=== PATIENT | female | born 1940 | race Caucasian/White ===

== ENCOUNTER → 2018-05-31 14:32 | Outpatient (CLI) | payer MEDICARE, SELFPAY ==
--- NOTE | 2018-05-31 | DI.MG.S_ITS ---
BILATERAL DIGITAL SCREENING MAMMOGRAM 3D/2D WITH CAD: 05/31/2018 CLINICAL: Routine screening. Comparison is made to exams dated: 05/11/2017 mammogram, 05/05/2016 mammogram, 11/05/2015 mammogram, 05/07/2015 mammogram, and 04/30/2015 mammogram - [facility]. There are scattered fibroglandular elements in both breasts. Current study was also evaluated with a Computer Aided Detection (CAD) system. There are benign vascular calcifications in both breasts. No significant masses, calcifications, or other findings are seen in either breast. There has been no significant interval change. IMPRESSION: There is no mammographic evidence of malignancy. A 1 year screening mammogram is recommended. This exam was interpreted at Station ID: [id number]. NOTE: For mammograms, a report in lay terms will be sent to the patient. Approximately 15% of breast malignancies will not be visualized mammographically. In the management of a palpable breast mass, a negative mammogram must not discourage biopsy of a clinically suspicious lesion. Electronically Signed By: Sandeep godinez/carmina:05/31/2018 18:42:55 letter sent: Normal Exam ACR BI-RADS Category 2: Benign Finding(s) 3342F
== END ==
PROVIDERS: PCP Physician Assistant Medical; Visit Provider Physician Assistant
DX: Z12.31 Encounter for screening mammogram for malignant neoplasm of breast (principal)
CPT/HCPCS: 77063; 77067

== ENCOUNTER → 2018-08-08 09:57 | Outpatient (CLI) | payer MEDICARE, SELFPAY ==
[2018-08-08 10:39] LABS: BUN Creatinine Ratio 21.3 (6-22); Blood Urea Nitrogen 17 mg/dL (7-17); Estimated Glomerular Filt Rate > 60.0 mL/min (>60)
--- NOTE | 2018-08-08 10:50 | DI.CT.S_ITS ---
PROCEDURE: CT ABDOMEN PELVIS WO/W CON INDICATIONS: GROSS HEMATURIA TECHNIQUE: Optional 5 mm thick noncontrast images acquired from the diaphragm to the symphysis pubis. After the administration of intravenous contrast, 5 mm thick images acquired from the diaphragm to the symphysis pubis after a 10-minute delay. 2 mm thick coronal and sagittal reformats were then performed of the kidneys and ureters. For radiation dose reduction, the following was used: automated exposure control, adjustment of mA and/or kV according to patient size. COMPARISON: None. FINDINGS: Image quality: Excellent. Lung bases: Lung bases are clear. Heart size is normal. Urinary system: Both kidneys are normal in size, without hydronephrosis on pre-contrast images. No perinephric fat stranding. Faint 2-3 mm hyperdensity involving midpole of right kidney is seen, likely represent nonobstructing right renal calculi. 1 cm hyperdense exophytic structure involving anterior cortex of upper to mid pole left kidney is seen and shows no contrast-enhancement, likely represent hyperdense cyst. Simple appearing cysts are also seen in left kidney and measures up to 1.9 cm in size in the lateral cortex of mid to lower pole left kidney. No gross enhancing renal lesion is noted. There is normal bilateral renal enhancement. Renal calyces appear normal in morphology when filled with contrast. Opacified portions of both ureters demonstrate normal caliber. There is mild diffuse bladder wall thickening, no gross discrete bladder wall mass is seen. No calcified bladder stones. Other solid organs: Liver is normal in size and enhancement. Ill-defined hypodense area involving right hepatic dome is seen and measures 1.1 x 1.7 cm in size and shows heterogeneous contrast enhancement. Similar structure involving the inferior aspect of right hepatic lobe and measures 1.3 x 0.7 cm in size is also seen. Gallbladder is well-distended and shows no gross abnormality. Biliary system is non dilated. Pancreas enhances normally. Spleen is normal in size and enhancement. No adrenal nodules. Peritoneum and bowel: There is a small hiatal hernia. No abnormal gastric wall or small bowel wall thickening. Markedly fluid distended ascending colon, transverse colon and descending colon to the level of proximal to mid sigmoid colon is seen with abrupt caliber changes. Markedly narrowed sigmoid colon lumen with diffuse sigmoid colon wall thickening and rectal wall thickening is seen. Extensive sigmoid diverticulosis is seen, and no CT evidence of acute diverticulitis. No free fluid or free air. There is a tiny ventral hernia containing fat only. Nodes and vessels: No retroperitoneal or mesenteric adenopathy by size criteria. Aorta and inferior vena cava are normal in size. Abdominal wall: No ventral hernias. Pelvis: No pathologic free pelvic fluid. No inguinal hernias or adenopathy. Patient is status post hysterectomy. No definite abnormality is seen in sagittal cuff region. Bones: No suspicious bony lesions. No vertebral body compression fractures. IMPRESSION: #1. Tiny nonobstructing right renal calculi. No obstructing renal stone or hydronephrosis. Normal appearing bilateral ureters. Suggestion of 1 cm hyperdense cyst in anterior cortex of mid pole left kidney. Additional simple appearing cysts are also seen in left kidney. No definite enhancing renal lesion. #2. Mild diffuse bladder wall thickening, no discrete bladder wall mass. No calcified bladder stone. #3. Diffuse mid to distal sigmoid colon wall thickening and rectal wall thickening with markedly narrowed sigmoid colon lumen and significant distention of colon loops proximal to this area. Finding is concerning for a circumferential sigmoid colon wall mass, suggest clinical and possible endoscopic correlation. Sigmoid diverticulosis with no evidence of acute diverticulitis. No free fluid or free air. #4. Ill-defined hypodensities involving right hepatic dome as above, which may represent hepatic hemangioma. CT or MRI followup is recommended. #5. No definite abdominal or pelvic lymphadenopathy. Dictated by: David Alvarez M.D. on 08/08/2018 at 13:35 Approved by: David Alvarez M.D. on 08/08/2018 at 13:55
== END ==
PROVIDERS: PCP Physician Assistant Medical; Visit Provider Urology
DX: R31.0 Gross hematuria (principal); N20.0 Calculus of kidney; N28.1 Cyst of kidney, acquired; K57.30 Diverticulosis of large intestine without perforation or abscess without bleeding; N39.0 Urinary tract infection, site not specified; R39.9 Unspecified symptoms and signs involving the genitourinary system
CPT/HCPCS: 36415; 74178; 82565; 84520; Q9967

== ENCOUNTER 2018-09-23 09:50 | Day surgery (SDC) | payer MEDICARE, SELFPAY ==
[2018-09-23] VITALS (10 sets, daily range): BP systolic 99–159; BP diastolic 52–86; PULSE 73–96; RESP 15–20; TEMP 36.1–37; O2SAT 95–100; BMI 24.9
--- NOTE | 2018-09-23 09:49 | PM.HP.1 ---
History of Present Illness Date Patient Seen: 09/23/18 Time Patient Seen: 10:01 Chief complaint: [id number] COLONOSCOPY Narrative: 78yo F for diagnostic colonoscopy. Incidental CT finding of sigmoid wall thickening and apparent stricturing of lumen in setting of diverticulosis. She has had several episodes of diverticulitis; she does not understand exactly what is causing this. She notes that with some medication changes for her bladder and kidneys she got constipation but takes a little prune juice now and that helps her have a regular daily BM. Last scope was 10 years ago with no polyps. No family history, no concerning symptoms. Patient History Medical History (Updated 09/23/18 @ 10:15 by Kirstin Álvarez, RN) Abnormal abdominal CT scan (Acute) Diverticulosis (Acute) History of gross hematuria (Acute) History of hysterectomy (Acute) Renal cyst (Acute) Seasonal allergies (Acute) Surgical History (Updated 09/23/18 @ 10:10 by Kirstin Álvarez, RN) History of appendectomy (Acute) Meds Home Medications Medication Instructions Recorded Confirmed Type Fluticasone Propionate (FLONASE) 1 spray INTRANASAL QDAY #0 07/24/12 History [CALCIUM] 1,200 mg PO QDAY #0 07/24/12 History amlodipine [Norvasc] 2.5 mg PO QDAY #0 07/24/12 History lisinopril 40 mg PO QDAY #0 07/24/12 History levothyroxine 1 tab PO DAILY 09/23/18 09/23/18 History montelukast 5 mg PO DAILY 09/23/18 09/23/18 History Allergies Allergy/AdvReac Type Severity Reaction Status Date / Time No Known Drug Allergies Allergy Verified 09/23/18 10:10 Review of Systems Constitutional Constitutional: Reports as per HPI Exam Narrative Exam Narrative: AAO, NAD, female of healthy weight EOMI, MMM, no scleral icterus unlabored RA soft, nt/nd MAEW visible skin dry and intact Assessment & Plan (1) Screening for colorectal cancer: Current visit: No Status: Acute Assessment & Plan narrative: - diagnostic colonoscopy --> all R/B/A discussed and pt wishes to proceed
[2018-09-23] MEDS: SODIUM CHLORIDE 0.9% 1,000 ML 200 ML IV (10:03)
[2018-09-23] MEDS: GLUCAGON,HUMAN RECOMBINANT 1 MG/ML VIAL IV (10:46)
--- NOTE | 2018-09-23 11:04 | PM.OP.ENDO ---
Operative Date/Time/Diagnoses Date of procedure: 09/23/18 Time of procedure: 11:04 Pre-op diagnosis: Sigmoid wall thickening, diverticulosis Post-op diagnosis: same Procedure & Clinicians Study performed: Flexible Sigmoidoscopy (Aborted colonoscopy) Same procedure as scheduled: No Procedure Notes Procedure in detail: After obtaining informed consent, the patient was brought to the GI suite and placed in the left lateral decubitus position on the examination table. After placement of appropriate monitors, the patient was given incremental doses of Versed and Fentanyl until an appropriate level of sedation was achieved. A time out was held per SCOAP protocol. A digital rectal examination was performed and did not reveal any masses or obstructing lesions but moderate external hemorrhoids are noted. The colonoscope was gently passed into the patient's anus and advanced minimally until a tight turn prevented forward movement. This was around 15-20cm so both scarring from her hysterectomy and her sigmoid scar tissue may be contributing. Glucagon was administered and patient was placed on all four sides with no improvement in visualization. The instrument was removed from the patient's body and the procedure was concluded. Radiology was called but they defer performing a barium enema today. The patient was allowed to awaken from sedation without difficulty and taken to the post-anesthesia care unit in good condition. Scope withdrawal time: n/a Sedation minutes: 32 Specimen(s): none sent Complications: other (unable to complete due to stricture and/or tortuous rectum) Impression: tight turn in rectum precludes forward movement, unable to complete Recommendations: Colonscopy in 1 year and High fiber diet Plan for aftercare: admit to obs for BE tomorrow Follow up: weeks Disposition: PACU
[2018-09-23] MEDS: MIDAZOLAM 5 MG/5 ML VIAL IV (11:06)
[2018-09-23] MEDS: fentaNYL 250 MCG/5 ML INJ IV (11:06)
--- NOTE | 2018-09-23 11:10 | SUR.PHASEI ---
report given to Patti Acosta RN
--- NOTE | 2018-09-23 11:13 | SUR.PHASEI ---
ASSUMED CARE OF PT AT THIS TIME. PT IN STABLE CONDITION, VSS. PT SITTING UP AND TALKING TO DR. OLIVER AT THIS TIME.
--- NOTE | 2018-09-23 12:03 | SUR.PHASEII ---
Report called to TITA YATES
--- NOTE | 2018-09-23 12:36 | SUR.PHASEII ---
1220 Transported to Acute Care by 2 RNs. (not myslef). IV was patent, all questions answered prior to transfer. Primary concern was getting a ferry pass for her ride. Explained that there are strict limits on who we can provide a pass to. Gave info regarding Oleg's taxi option with a order. Stable, oriented, alert, pleasant, and concerned about potential outcome.
[2018-09-23] MEDS: DEXTROSE 5%-0.45NS W/KCL 10MEQ 1,000 ML 84 MEQ IV (14:20)
--- NOTE | 2018-09-23 14:27 | PC.NURSE ---
Pt arrived via PACU after being unable to complete colonoscopy. Pt will be having Barium enema at 08:00 09/24/18. Pt settled to bed and admitted. IV in Left wrist patent and intact. Pt offers no c/o other than concern for her son who is [place] d.ludy david scare on [employer].
[2018-09-23] MEDS: BISACODYL 5 MG TABLET PO (14:33)
[2018-09-23] MEDS: DEXTROSE 5%-0.45% NS 1,000 ML 84 ML IV (16:37)
[2018-09-24 01:34] VITALS: BP 149/75; PULSE 80; RESP 16; TEMP 36.5; O2SAT 99
[2018-09-24] MEDS: DEXTROSE 5%-0.45NS W/KCL 10MEQ 1,000 ML 84 MEQ IV (01:48)
--- NOTE | 2018-09-24 02:14 | PC.NURSE ---
Addendum entered by Caryn Weiss R.N. 09/24/18 06:30: Slept most of night. Denies any pain this morning. BP remains elevated at 140/85 Original Note: Patient is alert and oriented. Breath sounds CTA with RA sat of 99%. HRR with elevated BP of 149/75. Denies nausea. BT present and abdomen is soft. Denies dysuria, frequency or urgency. Turns self in bed and when out of bed requests SBA due to some lower extremity weakness although appears steady on feet; no assistive device. Denies pain. Fall risk score is moderate; calls for assistance appropriately. Expressing some anxiety/questions regarding planned test in a.m.
[2018-09-24 04:35] VITALS: BP 140/85; PULSE 70; RESP 16; TEMP 36.5; O2SAT 98
[2018-09-24 07:45] VITALS: BP 156/73; PULSE 68; RESP 18; TEMP 36.4; O2SAT 100
--- NOTE | 2018-09-24 08:00 | DI.RAD.S_ITS ---
PROCEDURE: FL BARIUM ENEMA W AIR CONTRAST INDICATIONS: evaluate stricture of sigmoid colon; failed colonoscopy COMPARISON: [facility], CT, CT ABDOMEN PELVIS WO/W CON, 08/08/2018, 10:53. FINDINGS: KUB: Pre-procedural commercial title examiner film demonstrates a normal bowel gas pattern. No suspicious abdominal calcifications. Visualized solid organ contours are normal in size. No suspicious bony lesions. Colon: There is adequate air-contrast opacification from the rectum to the cecum. Prominent stricture involving the sigmoid colon measuring approximately 6 cm is noted corresponding to the appearance on the recent comparison CT dated 08/08/18. Elsewhere, no additional colonic narrowing or stricture seen. There are scattered colonic diverticula. IMPRESSION: Severe narrowing/stricture involving the sigmoid colon measuring approximately 6 cm in length and corresponds to the appearance from the prior comparison CT dated 08/08/18, again concerning for colonic malignancy. Please correlate clinically and with endoscopic findings. Colonic diverticulosis. Dictated by: Carlo Blanchard M.D. on 09/24/2018 at 9:42 Approved by: Carlo Blanchard M.D. on 09/24/2018 at 9:44
--- NOTE | 2018-09-24 10:50 | PM.DS.1 ---
History of Present Illness Chief complaint: [id number] COLONOSCOPY Narrative: 78yo F for diagnostic colonoscopy. Incidental CT finding of sigmoid wall thickening and apparent stricturing of lumen in setting of diverticulosis. She has had several episodes of diverticulitis; she does not understand exactly what is causing this. She notes that with some medication changes for her bladder and kidneys she got constipation but takes a little prune juice now and that helps her have a regular daily BM. Last scope was 10 years ago with no polyps. No family history, no concerning symptoms. Discharge Providers Discharge Date: 09/24/18 Primary care physician: Annia Lawrence PA-C Discharge provider: Katelyn Hawley MD Summary Discharge Diagnosis: Sigmoid wall thickening Hospital Course: 78yo F presented for diagnostic colonoscopy which was unable to be completed. She was kept overnight for a barium enema to be performed the next morning. Discharged after in good condition. Exam Vital Signs (past 8 hours): - 09/24/18 04:35 09/24/18 07:45 Temperature 97.7 F 97.6 F Pulse Rate 70 68 Respiratory Rate 16 18 Blood Pressure 140/85 156/73 H Pulse Oximetry 98 100 Oxygen Delivery Method Room Air Oxygen Flow Rate 0 Narrative Exam Narrative: AAO, NAD, female of healthy weight EOMI, MMM, no scleral icterus unlabored RA soft, nt/nd MAEW visible skin dry and intact Discharge Plan Discharge Plan Patient Disposition: Home Discharge Med Rec/Prescriptions Prescriptions: Continued lisinopril 20 MG tablet 40 mg PO QDAY Qty: 0 RF: 0 amlodipine [Norvasc] 2.5 MG tablet 5 mg PO QDAY Qty: 0 RF: 0 Fluticasone Propionate (FLONASE) 1 spray Intranasal QDAY PRN (Reason: allergies) Qty: 0 RF: 0 [CALCIUM] 1,200 mg PO QDAY Qty: 0 RF: 0 montelukast 5 mg Tablet,Chewable 5 mg PO DAILY RF: 0 levothyroxine 1 tab PO DAILY RF: 0 Follow up/Referrals: Annia Lawrence PA-C [Primary Care Provider] - Katelyn Hawley MD [Physician] - Discharge Orders: Discharge (Order); Ordered 09/24/18 Ordered By: Katelyn Hawley Provider Discharge Instructions Diet: Diet as Tolerated Diet comment: high fiber Visit Report/Discharge Packet Instructions: DI for Diverticulosis Stand Alone Forms: Colonoscopy Result: [facility] Discharge Data Primary Care Provider: Annia Lawrence Attending Provider: Katelyn Hawley
--- NOTE | 2018-09-24 11:06 | CM.DANOTE ---
DCP: Case received, EMR reviewed and met with patient. Introduced self and role. Baseline history received from patient. DCP template assessment completed with information currently available. Patient is a 78 year old female who admitted yesterday to the care of the surgical team. PCP: Dr. Lawrence. Payer: confirmed: Medicare/[employer] Patient had originally came to the hospital for a colonoscopy. They had been unable to do procedure, so she had a barium enema done. Met briefly with patient. Son was in room at bedside. She lives alone on Sunday, and is independent. Patient stated that her son will be able to help her out when she goes home. P: Patient is being discharged home today. Gayle Marie RN/Classification And Treatment Director
--- NOTE | 2018-09-24 11:26 | PC.NURSE ---
Discharge Pt anxious to go home. PIV removed without issue. D/c instructions provided to pt and son. Aware to contact MD with any additional questions or concerns and for f/u. pt took all belongings with her. left in w/c with [employer] escort. Received priority boarding pass for maria teresa.
== END 2018-09-24 11:15 | disposition home or self-care (01) ==
LOC: ENDO 11:44 → AC 11:59
PROVIDERS: PCP Physician Assistant Medical; Referring Provider Urology; Visit Provider Surgery
PROC: 0DJD8ZZ Inspection of Lower Intestinal Tract, Via Natural or Artificial Opening Endoscopic (ICD-10-PCS; CPT 45378; principal; 2018-09-23 10:45)
DX: K56.609 Unspecified intestinal obstruction, unspecified as to partial versus complete obstruction (principal); K57.30 Diverticulosis of large intestine without perforation or abscess without bleeding; R93.3 Abnormal findings on diagnostic imaging of other parts of digestive tract; K64.4 Residual hemorrhoidal skin tags
CPT/HCPCS: 45330; 74280; 99152; 99153; J1610; J2250; J3010

== ENCOUNTER → 2019-12-30 10:51 | Outpatient (CLI) | payer MEDICARE, SELFPAY ==
[2019-12-03 16:49] VITALS: BMI 24.9
--- NOTE | 2019-12-30 | DI.MG.S_ITS ---
BILATERAL DIGITAL SCREENING MAMMOGRAM 3D/2D WITH CAD: 12/30/2019 CLINICAL: Routine screening. Family history of breast cancer. Comparison is made to exams dated: 05/31/2018 mammogram, 05/11/2017 mammogram, 05/05/2016 mammogram, and 11/05/2015 mammogram - [facility]. There are scattered fibroglandular elements in both breasts. Current study was also evaluated with a Computer Aided Detection (CAD) system. There are benign vascular calcifications in both breasts. No significant masses, calcifications, or other findings are seen in either breast. There has been no significant interval change. IMPRESSION: BENIGN There is no mammographic evidence of malignancy. A 1 year screening mammogram is recommended. This exam was interpreted at Station ID: [id number]. NOTE: For mammograms, a report in lay terms will be sent to the patient. Approximately 15% of breast malignancies will not be visualized mammographically. In the management of a palpable breast mass, a negative mammogram must not discourage biopsy of a clinically suspicious lesion. Electronically Signed By: Lowell pagan/carmina:12/30/2019 14:26:35 letter sent: Normal Exam ACR BI-RADS Category 2: Benign Finding(s) 3342F
== END ==
PROVIDERS: PCP Physician Assistant Medical; Referring Provider Physician Assistant Medical; Visit Provider Physician Assistant Medical
DX: Z12.31 Encounter for screening mammogram for malignant neoplasm of breast (principal); Z80.3 Family history of malignant neoplasm of breast
CPT/HCPCS: 77063; 77067